=== PATIENT | female | born 1960 | race American Indian/Alaskan Native ===

== ENCOUNTER 2017-04-02 18:19 | Emergency (ER) | payer SELFPAY ==
[2017-04-02 19:10] LABS: Anion Gap 22 mmol/L; BUN/Creatinine Ratio 15.55; Blood Urea Nitrogen 14 mg/dL (7-17); Carbon Dioxide 25 mmol/L (22-30); Glucose 476 mg/dL (65-100); Potassium 4.5 mmol/L (3.6-5.0); Sodium 135 mmol/L (137-145)
[2017-04-02 19:16] LABS: Basophils % (Auto) 0.6 % (0.0-1.8); Hematocrit 42.8 % (30.3-42.9); Hemoglobin 14.2 gm/dl (10.1-14.3); Mean Corpuscular HGB Conc 33 % (30-34); Mean Corpuscular Hemoglobin 30 pg (28-32); Mean Corpuscular Volume 91 fl (79-97); Platelet Count 199 K/mm3 (140-440); Red Blood Count 4.69 M/mm3 (3.65-5.03); White Blood Count 8.1 K/mm3 (4.5-11.0)
[2017-04-02 19:22] LABS: Bilirubin,Urine NEG (Negative); Blood,Urine NEG (Negative); Ketones,Urine NEG (Negative); Leukocyte Esterase,Urine NEG (Negative); Nitrite,Urine NEG (Negative); Protein,Urine <15 mg/dL mg/dL (Negative); Urobilinogen,Urine < 2.0 mg/dL (<2.0); WBC,Urine < 1.0 /HPF (0.0-6.0)
--- NOTE | 2017-04-02 21:26 | Emergency Department Report ---
HPI - General Chief Complaint: Skin Rash Time Seen by Provider: 04/02/17 21:15 - HPI HPI: Room 2 The patient is a 56-year-old female presenting with a chief complaint of rash and vaginal discharge. The patient states she's had a recurrent rash under her breasts and in her buttocks is November 2016. Patient states she has noticed a vaginal discharge since January 2017. Patient states in January she went to [facility] was given a prescription for medications which helped momentarily but her symptoms returned. Patient denies dysuria or hematuria. Patient denies any history of fever Location: [see above] Duration: Months, see above Quality: [see above] Severity: Moderate Modifying factors: [see above] Context: [see above] Mode of transportation: [not driving] ED Past Medical Hx - Past Medical History Previous Medical History?: Yes Hx Diabetes: Yes - Surgical History Past Surgical History?: No - Family History Family history: no significant - Social History Smoking Status: Never Smoker Substance Use Type: None (denies illicit drug use), Alcohol ("frequently") - Medications Home Medications: Home Medications Medication Instructions Recorded Confirmed Last Taken Type Fluconazole [Diflucan TAB] 150 mg PO ONCE #1 tablet 04/02/17 Unknown Rx Nystatin Oint [Mycostatin Oint] 1 applicatio TP BID #15 gm 04/02/17 Unknown Rx ED Review of Systems ROS: Stated complaint: RASH Other details as noted in HPI Comment: All other systems reviewed and negative Constitutional: denies: chills, fever Eyes: denies: eye pain, eye discharge, vision change ENT: denies: ear pain, throat pain Respiratory: denies: cough, shortness of breath, wheezing Cardiovascular: denies: chest pain, palpitations Endocrine: no symptoms reported Gastrointestinal: denies: abdominal pain, nausea, diarrhea Genitourinary: discharge Musculoskeletal: denies: back pain, joint swelling, arthralgia Skin: rash Neurological: denies: headache, weakness, paresthesias Psychiatric: denies: anxiety, depression Hematological/Lymphatic: denies: easy bleeding, easy bruising Physical Exam - Physical Exam Vital Signs: Vital Signs 04/02/17 04/02/17 18:23 20:57 Temperature 98.5 F Pulse Rate 109 H 65 Respiratory 20 17 Rate Blood Pressure 157/108 Blood Pressure 169/88 [Left] O2 Sat by Pulse 99 99 Oximetry Physical Exam: GENERAL: The patient is well-developed well-nourished female lying on stretcher not appearing to be in acute distress. [] HEENT: Normocephalic. Atraumatic. Extraocular motions are intact. Patient has moist mucous membranes. NECK: Supple. Trachea midline CHEST/LUNGS: Clear to auscultation. There is no respiratory distress noted. HEART/CARDIOVASCULAR: Regular. There is no tachycardia. There is no gallop rub or murmur. ABDOMEN: Abdomen is soft, nontender. Patient has normal bowel sounds. There is no abdominal distention. SKIN: There is noted an irritated his skin consistent with an intertriginous candidiasis throughout the perineum and under both breasts. There is no diaphoresis. NEURO: The patient is awake, alert, and oriented. The patient is cooperative. The patient has normal speech MUSCULOSKELETAL: There is no evidence of acute injury. PELVIC: Perineum appears irritated consistent with intertriginous candidiasis. Scant white discharge in the vaginal vault ED Course Vital Signs 04/02/17 04/02/17 18:23 20:57 Temperature 98.5 F Pulse Rate 109 H 65 Respiratory 20 17 Rate Blood Pressure 157/108 Blood Pressure 169/88 [Left] O2 Sat by Pulse 99 99 Oximetry ED Medical Decision Making - Lab Data Result diagrams: 04/02/17 18:38 04/02/17 18:38 Laboratory Tests 04/02/17 04/02/17 04/02/17 18:31 18:38 18:38 WBC 8.1 RBC 4.69 Hgb 14.2 Hct 42.8 MCV 91 MCH 30 MCHC 33 RDW 13.0 L Plt Count 199 Lymph % (Auto) 31.2 [place] % (Auto) 9.7 H Eos % (Auto) 3.0 Baso % (Auto) 0.6 Lymph # 2.5 [place] # 0.8 Eos # 0.2 Baso # 0.0 Seg Neutrophils % 55.5 Seg Neutrophils # 4.5 VBG pH Sodium 135 L Potassium 4.5 Chloride 93.0 L Carbon Dioxide 25 Anion Gap 22 BUN 14 Creatinine 0.9 Estimated GFR > 60 BUN/Creatinine Ratio 15.55 Glucose 476 H POC Glucose 486 H Calcium 9.0 Urine Color Urine Turbidity Urine pH Ur Specific [place] Urine Protein Urine Glucose (UA) Urine Ketones Urine Blood Urine Nitrite Urine Bilirubin Urine Urobilinogen Ur Leukocyte Esterase Urine WBC (Auto) Urine RBC (Auto) 04/02/17 04/02/17 04/02/17 18:38 18:52 20:50 WBC RBC Hgb Hct MCV MCH MCHC RDW Plt Count Lymph % (Auto) [place] % (Auto) Eos % (Auto) Baso % (Auto) Lymph # [place] # Eos # Baso # Seg Neutrophils % Seg Neutrophils # VBG pH 7.381 Sodium Potassium Chloride Carbon Dioxide Anion Gap BUN Creatinine Estimated GFR BUN/Creatinine Ratio Glucose POC Glucose 341 H Calcium Urine Color Straw Urine Turbidity Clear Urine pH 6.0 Ur Specific [place] 1.020 Urine Protein <15 mg/dl Urine Glucose (UA) >=500 Urine Ketones Neg Urine Blood Neg Urine Nitrite Neg Urine Bilirubin Neg Urine Urobilinogen < 2.0 Ur Leukocyte Esterase Neg Urine WBC (Auto) < 1.0 Urine RBC (Auto) 2.0 Wet prep-no clue cells, yeast or trichomonas noted - Differential Diagnosis intertriginous candidiasis, vaginal candidiasis Critical care attestation.: If time is entered above; I have spent that time in minutes in the direct care of this critically ill patient, excluding procedure time. ED Disposition Clinical Impression: Intertriginous candidiasis Disposition: DC-01 TO HOME OR SELFCARE Is pt being admited?: No Does the pt Need Aspirin: No Condition: Stable Instructions: Vulvovaginal Candidiasis (ED) Additional Instructions: Return to the emergency department immediately should you develop worsening symptoms, fever, inability to tolerate food or liquid or any other concerns. 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 Please follow up with him for further evaluation) Time of Disposition: 23:21
[2017-04-02 23:26] VITALS: BP 155/89
== END 2017-04-02 23:27 | disposition home or self-care (01) ==
LOC: ED 18:19
DX: B37.2 Candidiasis of skin and nail (principal)
CPT/HCPCS: 36415; 80048; 81001; 82805; 82962; 85025; 87210; 87591; 99284